=== PATIENT | male | born 1985 | race Caucasian/White ===

== ENCOUNTER → 2017-12-18 | Outpatient (REF) ==
--- NOTE | 2017-12-18 14:29 | Diagnostic Imaging Report ---
INDICATION: Injury. Pain. COMPARISON: None. FINDINGS: Three views of the right ankle are obtained. No acute fracture, malalignment or osseous destructive process is seen. There is moderate soft tissue swelling particularly laterally. IMPRESSION: Soft tissue swelling without evidence of an acute osseous abnormality. Dictated by: Dictated on workstation # [id number]
== END | disposition home or self-care (01) ==
LOC: RAD 13:35
PROVIDERS: ATTEND Family Medicine
CPT/HCPCS: 73610